=== PATIENT | male | born 1985 | race African-American/Black ===

== ENCOUNTER 2017-12-07 09:30 | Emergency (ER) | payer OTHER ==
[~2017-12-07] VITALS: Ht 182.9 cm; Wt 68.0 kg
[2017-12-07] MEDS ORDERED: MOBIC15 MG PO (10:53)
== END 2017-12-07 11:02 | disposition home or self-care (01) ==
LOC: ER 09:30
DX: S41.151A Open bite of right upper arm, initial encounter (principal); F17.210 Nicotine dependence, cigarettes, uncomplicated; W50.3XXA Accidental bite by another person, initial encounter; Y93.89 Activity, other specified; Y92.89 Other specified places as the place of occurrence of the external cause; Y99.8 Other external cause status